=== PATIENT | male | born 1995 | race Caucasian/White ===

== ENCOUNTER → 2017-03-04 | Outpatient (CLI) | payer OTHER ==
[~2017-03-04] MED LIST: AMOXICILLIN500 M1 PO; AUGMENTIN PO; BENADRYL PO; CIPRODEX OTIC7.5 ML OT; CLARITIN10 MG; CLARITIN10 MG PO; KEFLEX PO; NO MEDICATIONS; PHENERGAN DM1 ML PO; STRATTERA; STRATTERA PO; ZOLOFT; ZOLOFT PO
--- NOTE | ~2017-03-04 | CR169 ---
[facility] A Service of [facility] & [facility] RADIOLOGY TEXT RESULTS PATIENT: RADHA MANSFIELD II LOCATION: [facility] : [birth year] UNIT #: [id number] AGE: [address]: Curtis Mtz MD SEX: M ORDER DR: [id number] [facility] [address] [place], [place] [address] [id number] O MR#: [id number] Acc #: [id number] NAME: RADHA MANSFIELD : 1995 SEX: M STUDY DATE/TIME: 03/04/2017 15:43 UNIT: [facility] ROOM: STUDY DESCRIPTION: CR Knee 2 Views Lt Attending Physician: Curtis Mtz M.D. Referring Physician: Curtis Mtz M.D. Ordering Physician: Curtis Mtz M.D. Primary Care Physician: Curtis Mtz M.D. MEDICAL IMAGING REPORT This report is preliminary unless electronic signature is present EXAM Left knee 2 views 03/04/2017 HISTORY Left knee pain posteriorly for 2 years. Patient walking with a limp. No known injury. FINDINGS AP and lateral projection of the knee shows smooth articular anatomy without indication of fracture or dislocation at the major weight-bearing surface of the knee. There is no indication of radiopaque foreign body about the knee surface or joint effusion. IMPRESSION Normal knee. Dictated by... Russel Naik M.D. THIS IS AN ELECTRONICALLY VERIFIED REPORT Russel Naik M.D. at 03/05/2017 9:02 AM SPENCER/destiny TD: 03/04/2017 21:22 JOB #: [id number] MEDICAL IMAGING REPORT Page 1 of 1 COPY
== END | disposition home or self-care (01) ==
LOC: CRAD 14:52
DX: M25.562 Pain in left knee (principal)
CPT/HCPCS: 73560